=== PATIENT | female | born 1955 | race Caucasian/White ===

== ENCOUNTER 2017-11-26 14:53 | Inpatient (IN) | payer SELFPAY ==
[~2017-11-26] VITALS: Ht 162.6 cm; Wt 54.4 kg
--- NOTE | 2017-11-26 14:55 | NUR ---
AAOX3, BIBRA 89 FROM HOME C/O MILD SOB, SPO2=98% ON RA, PT HAS BEEN TAKING ANTIBIOTIC FOR PNA. SKIN IS WARM AND DRY. PLACED ON THE MONITOR AND HOSPITAL GOWN. WARM BLANKET PROVIDED TO PATIENT. AWAITING MD FOR EVAL.
[2017-11-26 15:26] LABS: BASOPHILS # (AUTO) 0.4 /CMM (0.0-0.2); BASOPHILS % (AUTO) 3.9 % (0.0-2.0); EOSINOPHILS % (AUTO) 3.1 % (0.0-6.0); HEMATOCRIT 32 % (33-45); LYMPHOCYTES # (AUTO) 1.3 /CMM (0.8-4.8); LYMPHOCYTES % (AUTO) 14.4 % (20.0-44.0); MEAN CORPUSCULAR HEMOGLOBIN 30 PG (26.0-33.0); MEAN CORPUSCULAR HGB CONC 34 g/dl (31.0-36.0); MEAN CORPUSCULAR VOLUME 88 fL (82-100); MONOCYTES # (AUTO) 0.5 /CMM (0.1-1.30); MONOCYTES % (AUTO) 5.1 % (2.0-12.0); NEUTROPHILS # (AUTO) 6.8 /CMM (1.8-8.9); NEUTROPHILS % (AUTO) 73.5 % (43.0-81.0); PLATELET COUNT (AUTO) 648 /CMM (150-450); RDW COEFFICIENT OF VARIATION 11.8 (11.5-15.0); RED BLOOD CELL COUNT(AUTO) 3.67 MIL/uL (4.0-5.2); WHITE BLOOD COUNT (AUTO) 9.3 K/uL (4.3-11.0)
[2017-11-26] MEDS ORDERED: ALBUTEROL FS 2.5 MG/3 ML VIAL.NEB NEB ONE (15:30)
[2017-11-26] MEDS ORDERED: IPRATROPIUM NEB FS 0.5 MG/2.5 ML AMPUL.NEB NEB ONE (15:30)
[2017-11-26] MEDS ORDERED: IPRATROPIUM NEB FS 0.5 MG/2.5 ML AMPUL.NEB ONE (15:35)
[2017-11-26] MEDS ORDERED: ALBUTEROL FS 2.5 MG/3 ML VIAL.NEB ONE (15:35)
[2017-11-26 15:39] LABS: CALCIUM, SERUM 9.3 mg/dL (8.5-10.1); POTASSIUM 3.3 mmol/L (3.5-5.1)
--- NOTE | 2017-11-26 15:42 | NUR ---
URINE SPECIMEN OBTAINED AND COLLECTED SENT TO LAB , AT BEDSIDE EVALUATING THE PT , RT AT BEDSIDE FOR BREATHING TX , VSS STABLE , WILL CONTINUE TO MONITOR
[2017-11-26 15:51] LABS: TROPONIN I < 0.017 ng/mL (0.00-0.056)
[2017-11-26] MEDS ORDERED: IV NS 0.9% 1,000 ML IV PRN ×2 (16:00)
[2017-11-26] MEDS ORDERED: AZITHROMYCIN 500 MG in IV D5W 250 ML IV ONE (16:00)
[2017-11-26] MEDS ORDERED: CEFTRIAXONE 1GM BAG (ER ONLY) 1 GM/50 ML PIGGYBACK IV ONE (16:00)
[2017-11-26] MEDS ORDERED: CEFTRIAXONE 1GM BAG (ER ONLY) 50 ML IV ONE (16:13)
--- NOTE | 2017-11-26 16:13 | NUR ---
CALLED PHARMACY FOR AZITHROMYCIN, SPOKE TO LOULOU
--- NOTE | 2017-11-26 16:26 | NUR ---
CALLED [facility] FOR PANEL CALL AND DR LUIS WAS PAGED. CALLED NURSING CERTIFIED FRAUD EXAMINER AND REQUESTED A TELE BED FOR THIS PT.
--- NOTE | 2017-11-26 16:43 | NUR ---
NOTIFIED DR MARQUEZ THAT PT IS COMPLAINING THAT SHE FELT SWELLING ON HER BOTH LEGS GOING UP TO HER FACE , ON 2LPM NC SPO2 OF 100% VSS , IVF BOLUS HELD , DENIES SOB AND DISCOMFORT , AWARE , AWATING FOR ORDERS
[2017-11-26 16:56] LABS: CREATINE KINASE, TOTAL 59 U/L (26-192)
--- NOTE | 2017-11-26 17:06 | NUR ---
PT IS ASSIGNED TO TELE RM#: [id number], DX: PNEUMONIA, AND ACCEPTING IS DR RESENDIZ
[2017-11-26] MEDS ORDERED: IOHEXOL-350 100 ML VIAL IV ONE (17:07)
--- NOTE | 2017-11-26 17:12 | NUR ---
TRANSFERED TO RADIOLOGY DEPT FOR CT PULMO ANGIO VSS STABLE ,
[2017-11-26 17:50] LABS: APPEARANCE,URINE CLEAR (CLEAR); BILIRUBIN,URINE NEGATIVE (NEGATIVE); BLOOD, URINE 1+ Ery/uL (NEGATIVE); COLOR,URINE YELLOW (YELLOW); KETONES,URINE NEGATIVE (NEGATIVE); LEUKOCYTE ESTERASE ,URINE NEGATIVE (NEGATIVE); NITRITE, URINE NEGATIVE (NEGATIVE); PROTEIN,URINE NEGATIVE (NEGATIVE); UGLUCOSE NEGATIVE (NEGATIVE); UROBILINOGEN,URINE 0.2 EU/dL (0.2)
[2017-11-26 17:58] LABS: BILIRUBIN,TOTAL 0.1 mg/dL (0.2-1.0)
[2017-11-26] MEDS ORDERED: MAG HYDROX/AL HYDROX/SIMETH 30 ML UDC PO PRN ×2 (18:00→18:45)
[2017-11-26] MEDS ORDERED: HYDROCODONE/APAP 5/325MG 1 EACH TABLET PO PRN ×2 (18:00→18:45)
[2017-11-26] MEDS ORDERED: POTASSIUM CHLORIDE 20 MEQ TAB.PRT.SR PO ONE ×2 (18:00)
[2017-11-26] MEDS ORDERED: ACETAMINOPHEN 325 MG TABLET PO PRN (18:00)
[2017-11-26] MEDS ORDERED: MAGNESIUM HYDROXIDE 30 ML UDC PO PRN ×2 (18:00→18:45)
[2017-11-26] MEDS ORDERED: ZOLPIDEM TARTRATE 5 MG TABLET PO PRN ×2 (18:00→18:45)
[2017-11-26] MEDS ORDERED: ONDANSETRON HCL/PF 4 MG/2 ML VIAL IVP PRN ×2 (18:00→18:45)
[2017-11-26] MEDS ORDERED: Z GUARD REMEDY 2 OZ OINT TP PRN ×2 (18:00→18:45)
[2017-11-26 18:05] LABS: BACTERIA,URINE None seen /HPF (None Seen); SQUAMOUS EPITHELIAL CELL,UR 0-2 /HPF (None Seen); WBC,URINE 0-2 /HPF (0-3)
--- NOTE | 2017-11-26 18:30 | NUR ---
EDUCATION SITE MANAGER NOTES: ADMITTED PATIENT WITH A DIAGNOSIS OF PNEUMONIA. NO APPARENT DISTRESS NOTED. NO COMPLAINTS OF PAIN OR DISCOMFORT AT THIS TIME. VITAL SIGNS WNL. SKIN IS INTACT. BELONGINGS LIST DONE. WILL ENDORSE TO ENTRY LEVEL ACCOUNT REPRESENTATIVE FOR DMITRIY.
--- NOTE | 2017-11-26 18:45 | NUR ---
TRANSFERED TO ROOM 120-1 VIA ACLS PROTOCOL , VSS , DENIES SOB AND DISCOMFORT AT THIS TIME , ATTACHED TO TELE MONITOR , REPORT GIVEN TO DERREK FOR CONTINUITY OF CARE
[2017-11-26 19:11] VITALS: BP 116/76
[2017-11-26 20:00] VITALS: BP 107/64
--- NOTE | 2017-11-26 20:30 | NUR ---
INSURANCE ASSISTANT OPENING NOTES RECEIVED REPORT FROM NED FIGUEREDO. PATIENT A/A/O X3, ABLE TO MAKE NEEDS KNOWN. BREATHING EVEN & UNLABORED, TOLERATING O2 @ 2LPM VIA NC. ON TELE W/ SINUS RHYTHM, HR 70S. DENIES ANY CARDIAC DISTRESS, SOB OR DIFFICULTY BREATHING. RIGHT AC IV #20 INTACT & PATENT W/ DRESSING CDI. NO S/S OF INFILTRATION NOTED. DENIES ANY PAIN OR DISCOMFORT @ THIS TIME. SAFETY MEASURES MAINTAINED W/ CALL LIGHT WITHIN REACH. INSTRUCTED TO CALL FOR ASSISTANCE. WILL CONTINUE TO MONITOR.
[2017-11-26] MEDS: IV NS 0.9% 1,000 ML IV PRN (21:09)
[2017-11-27] VITALS (7 sets, daily range): BP systolic 90–105; BP diastolic 54–64
--- NOTE | 2017-11-27 07:30 | NUR ---
SUB ARC OPERATOR INITIAL NOTES RECEIVED PATIENT SLEEPING IN BED, EASY TO AROUSE, AOX3, ON 2L NC, NO COMPLIANT OF SOB, AMBULATORY, ON TELE MONITOR 75 HR SR, IV L FA NS @ 75 ML/HR, CLEAN AND PATENT, BED IN LOW AND LOCKED POSITION CALL LIGHT WITHIN REACH, WILL CONTINUE TO MONITOR.
[2017-11-27] MEDS: AZITHROMYCIN 250 MG TABLET PO SCH (08:38)
[2017-11-27] MEDS ORDERED: AZITHROMYCIN 250 MG TABLET PO SCH (09:00)
[2017-11-27 12:47] LABS: BASOPHILS % (AUTO) 0.4 % (0.0-2.0); EOSINOPHILS % (AUTO) 3.6 % (0.0-6.0); HEMATOCRIT 31 % (33-45); HEMOGLOBIN 10.3 g/dL (11.5-14.8); LYMPHOCYTES # (AUTO) 1.4 /CMM (0.8-4.8); LYMPHOCYTES % (AUTO) 15.1 % (20.0-44.0); MEAN CORPUSCULAR HEMOGLOBIN 30 PG (26.0-33.0); MEAN CORPUSCULAR HGB CONC 33 g/dl (31.0-36.0); MEAN CORPUSCULAR VOLUME 91 fL (82-100); MONOCYTES # (AUTO) 0.5 /CMM (0.1-1.30); NEUTROPHILS # (AUTO) 6.7 /CMM (1.8-8.9); NEUTROPHILS % (AUTO) 74.9 % (43.0-81.0); PLATELET COUNT (AUTO) 623 /CMM (150-450); RDW COEFFICIENT OF VARIATION 12.7 (11.5-15.0); RED BLOOD CELL COUNT(AUTO) 3.45 MIL/uL (4.0-5.2)
[2017-11-27 13:00] LABS: CALCIUM, SERUM 8.6 mg/dL (8.5-10.1); CREATININE 0.8 mg/dL (0.6-1.3); POTASSIUM 3.6 mmol/L (3.5-5.1)
[2017-11-27 13:03] LABS: IRON, SERUM 17 ug/dl (50-175); TOTAL IRON BINDING CAPACITY 183 ug/dl (250-450)
[2017-11-27 13:17] LABS: FERRITIN 198 ng/mL (8-388)
[2017-11-27] MEDS: IV NS 0.9% 1,000 ML IV PRN (13:45)
[2017-11-27] MEDS: CEFTRIAXONE 1 G in IV NS 0.9% 50 ML IV SCH (17:08)
[2017-11-27] MEDS: ACETAMINOPHEN 325 MG TABLET PO PRN (17:19)
[2017-11-27] MEDS ORDERED: CEFTRIAXONE 1 G in IV NS 0.9% 50 ML IV SCH (18:00)
--- NOTE | 2017-11-27 18:54 | NUR ---
ELECTRIC SWITCH TESTER NOTES PATIENT RESTING IN BED, ALL NEEDS MET, NO SIGNS OF DISTRESS, WILL ENDORSE TO INDUSTRIAL STAFF NURSE FOR CONTINUITY OF CARE.
--- NOTE | 2017-11-27 20:00 | NUR ---
ENTERPRISE SOFTWARE ENGINEER OPENING NOTES RECEIVED REPORT FROM MALOU FIGUEREDO. PATIENT A/A/O X3, ABLE TO MAKE NEEDS KNOWN. BREATHING EVEN & UNLABORED, TOLERATING ROOM AIR BUT W/ NC @ 2LPM ON/OFF FOR COMFORT. ON TELE W/ SINUS RHYTHM, HR 70S. DENIES ANY CARDIAC DISTRESS, SOB OR DIFFICULTY BREATHING. RIGHT AC IV #20 INTACT & PATENT W/ DRESSING CDI & IVF NS INFUSING WELL @ 75 ML/HR. NO S/S OF INFILTRATION NOTED. DENIES ANY PAIN OR DISCOMFORT @ THIS TIME. SAFETY MEASURES MAINTAINED W/ CALL LIGHT WITHIN REACH. INSTRUCTED TO CALL FOR ASSISTANCE. WILL CONTINUE TO MONITOR.
[2017-11-28] VITALS: BP_SYST 108; BP_SYST 86; BP_DIAS 50; BP_DIAS 61
[2017-11-28] MEDS: ACETAMINOPHEN 325 MG TABLET PO PRN ×2 (01:39→22:06)
[2017-11-28 04:00] VITALS: BP 98/61
[2017-11-28] MEDS: IV NS 0.9% 1,000 ML IV PRN ×2 (06:43→20:40)
[2017-11-28 08:00] VITALS: BP 94/62
[2017-11-28] MEDS: AZITHROMYCIN 250 MG TABLET PO SCH (08:38)
[2017-11-28 11:08] LABS: BASOPHILS # (AUTO) 0.1 /CMM (0.0-0.2); BASOPHILS % (AUTO) 1.4 % (0.0-2.0); EOSINOPHILS % (AUTO) 3.6 % (0.0-6.0); HEMATOCRIT 30 % (33-45); HEMOGLOBIN 9.9 g/dL (11.5-14.8); LYMPHOCYTES # (AUTO) 1.6 /CMM (0.8-4.8); MEAN CORPUSCULAR HEMOGLOBIN 31 PG (26.0-33.0); MEAN CORPUSCULAR HGB CONC 33 g/dl (31.0-36.0); MEAN CORPUSCULAR VOLUME 92 fL (82-100); MONOCYTES # (AUTO) 0.5 /CMM (0.1-1.30); NEUTROPHILS # (AUTO) 7.5 /CMM (1.8-8.9); PLATELET COUNT (AUTO) 549 /CMM (150-450); RDW COEFFICIENT OF VARIATION 12.6 (11.5-15.0); RED BLOOD CELL COUNT(AUTO) 3.25 MIL/uL (4.0-5.2); WHITE BLOOD COUNT (AUTO) 10.1 K/uL (4.3-11.0)
[2017-11-28 11:45] LABS: CALCIUM, SERUM 8.8 mg/dL (8.5-10.1); CREATININE 0.8 mg/dL (0.6-1.3)
[2017-11-28 12:00] VITALS: BP 103/67
[2017-11-28] MEDS: ALBUTEROL HALF STRENGTH 1.25 MG/3 ML VIAL.NEB NEB SCH ×2 (14:40→20:29)
[2017-11-28] MEDS: IPRATROPIUM NEB FS 0.5 MG/2.5 ML AMPUL.NEB NEB SCH ×2 (14:40→20:29)
[2017-11-28] MEDS: FERROUS SULFATE (325 MG) 325 MG/TAB TABLET PO SCH ×2 (15:05→17:02)
[2017-11-28 16:00] VITALS: BP 110/71
[2017-11-28] MEDS: CEFTRIAXONE 1 G in IV NS 0.9% 50 ML IV SCH (17:02)
--- NOTE | 2017-11-28 19:40 | NUR ---
MS RN NOTES, PATIENT IN BED AWAKE ALERT AND ORIENTED, ABLE TO COMMUNICATE NEEDS AND CONCERNS, BREATHING EVEN & UNLABORED, NO S/S OF ACUTE DISTRESS OR DISCOMFORT AT THIS TIME, TOLERATING ROOM AIR, RECEIVING BREATHING TREATMENT AT THIS TIME, DENIES PAIN OR DISCOMFORT AT THIS TIME, RIGHT AC IV #20 INTACT & PATENT IVF NS 0.9% INFUSING WELL @ 75 ML/HR. NO S/S OF INFILTRATION NOTED. BED LOCKED AND LOW POSITION, ALL NEEDS PROVIDED, CALL LIGHT W/I REACH, WILL CONTINUE TO MONITOR CLOSELY.
[2017-11-28 20:00] VITALS: BP 102/71
[2017-11-28] MEDS ORDERED: ZOLPIDEM TARTRATE 10 MG TABLET PO PRN (22:00)
[2017-11-29 04:00] VITALS: BP 98/58
[2017-11-29 06:45] LABS: BASOPHILS # (AUTO) 0.2 /CMM (0.0-0.2); BASOPHILS % (AUTO) 1.7 % (0.0-2.0); EOSINOPHILS % (AUTO) 3.9 % (0.0-6.0); HEMATOCRIT 30 % (33-45); HEMOGLOBIN 10.1 g/dL (11.5-14.8); LYMPHOCYTES # (AUTO) 1.2 /CMM (0.8-4.8); MEAN CORPUSCULAR HEMOGLOBIN 30 PG (26.0-33.0); MEAN CORPUSCULAR HGB CONC 34 g/dl (31.0-36.0); MEAN CORPUSCULAR VOLUME 90 fL (82-100); MONOCYTES # (AUTO) 0.6 /CMM (0.1-1.30); MONOCYTES % (AUTO) 5.9 % (2.0-12.0); NEUTROPHILS # (AUTO) 8.4 /CMM (1.8-8.9); NEUTROPHILS % (AUTO) 77.5 % (43.0-81.0); PLATELET COUNT (AUTO) 552 /CMM (150-450); RDW COEFFICIENT OF VARIATION 13.1 (11.5-15.0); RED BLOOD CELL COUNT(AUTO) 3.33 MIL/uL (4.0-5.2); WHITE BLOOD COUNT (AUTO) 10.8 K/uL (4.3-11.0)
--- NOTE | 2017-11-29 06:46 | NUR ---
MS RN NOTES, PATIENT IN BED SLEEPING AT THIS TIME, BREATHING EVEN & UNLABORED, NO S/S OF ACUTE DISTRESS OR DISCOMFORT AT THIS TIME, MO S/S OF PAIN OR DISCOMFORT NOTED AT THIS TIME, RIGHT AC IV #20 INTACT & PATENT IVF NS 0.9% INFUSING WELL @ 75 ML/HR. NO S/S OF INFILTRATION NOTED. BED LOCKED AND LOW POSITION, ALL NEEDS PROVIDED, REMAINED STABLE DURING THE NIGHT, CALL LIGHT W/I REACH, WILL ENDORSE CONTINUITY OF CARE TO ONCOMING NURSE.
[2017-11-29 07:11] LABS: CALCIUM, SERUM 8.9 mg/dL (8.5-10.1); CREATININE 0.7 mg/dL (0.6-1.3); MAGNESIUM 2.1 mg/dL (1.8-2.4); PHOSPHORUS 3.5 mg/dL (2.5-4.9)
[2017-11-29] MEDS: IPRATROPIUM NEB FS 0.5 MG/2.5 ML AMPUL.NEB NEB SCH ×2 (07:31→11:28)
[2017-11-29] MEDS: ALBUTEROL HALF STRENGTH 1.25 MG/3 ML VIAL.NEB NEB SCH ×2 (07:31→11:28)
[2017-11-29 08:00] VITALS: BP 112/73
[2017-11-29] MEDS: FERROUS SULFATE (325 MG) 325 MG/TAB TABLET PO SCH (08:16)
[2017-11-29] MEDS: AZITHROMYCIN 250 MG TABLET PO SCH (08:16)
[2017-11-29] MEDS: IV NS 0.9% 1,000 ML IV PRN (10:08)
[2017-11-29] MEDS ORDERED: LEVO750T21 PO (10:35)
[2017-11-29] MEDS: CEFTRIAXONE 1 G in IV NS 0.9% 50 ML IV SCH (14:16)
--- NOTE | 2017-11-29 16:00 | NUR ---
RN NOTE PT DISCHARGED HOME WITH VIA OWN TRANSPORTATION, DISCHARGE INSTRUCTIONS GIVEN TO PT, EXIT CARE DONE, TEACHING DONE TO PT, PT VERBALIZED UNDERSTANDING, PT IV REMOVED, ID BAND REMOVED. BELONGING LIST SIGNED, BELONGINGS PROVIDED TO PT. SKIN IS INTACT.
== END 2017-11-29 15:57 | disposition home or self-care (01) | DRG 177 ==
LOC: ER 14:54 → TELE1 18:47 → MEDSG1 11-28 14:38
PROVIDERS: ADMIT Family Medicine; ATTEND Family Medicine
DX: J15.6 Pneumonia due to other Gram-negative bacteria (principal); J96.01 Acute respiratory failure with hypoxia; E87.2 Acidosis; E87.1 Hypo-osmolality and hyponatremia; J15.9 Unspecified bacterial pneumonia; E87.6 Hypokalemia; E86.0 Dehydration; D50.9 Iron deficiency anemia, unspecified; Z87.891 Personal history of nicotine dependence; R73.9 Hyperglycemia, unspecified
CPT/HCPCS: 36415; 71045-TC; 80048-TC; 80061-TC; 81000-TC; 82247-TC; 82248-TC; 82550-TC; 82553-TC; 82728-TC; 83540-TC; 83605-TC; 83735-TC; 83880; 84100-TC; 84443-TC; 84484-TC; 85025-TC; 85378-TC; 87040-TC; 87070-TC; 87081-TC; 87086-TC; A4216; A4606; J0456; J0696; J7030; J7060; Q9967; Z7610

== ENCOUNTER 2017-12-02 13:58 | Emergency (ER) | payer SELFPAY ==
[~2017-12-02] VITALS: Ht 162.6 cm; Wt 52.8 kg
[~2017-12-02 13:58] MED LIST: LEVO750T21 PO
--- NOTE | 2017-12-02 14:08 | NUR ---
PT AMBULATORY TO ER BED 05. C/O SOB, DIZZINESS 2 HOURS AFTER TAKING DOXYCYLINE FOR HER PNEUMONIA. DENIES CP. ENDORSES MUSCLE CRAMPING, NO SKIN RASH NOTED. PLACED ON MONITOR. AWAITING MD [place].
--- NOTE | 2017-12-02 14:25 | NUR ---
DR HERNANDEZ AT BEDSIDE FOR EVAL.
--- NOTE | 2017-12-02 14:35 | NUR ---
IV LINE STARTED BLOOD DRAWN AND SENT TO LAB.
[2017-12-02 14:40] LABS: BASOPHILS # (AUTO) 0.3 /CMM (0.0-0.2); BASOPHILS % (AUTO) 2.6 % (0.0-2.0); EOSINOPHILS % (AUTO) 1.4 % (0.0-6.0); HEMATOCRIT 33 % (33-45); HEMOGLOBIN 11.3 g/dL (11.5-14.8); LYMPHOCYTES # (AUTO) 2.2 /CMM (0.8-4.8); LYMPHOCYTES % (AUTO) 21.1 % (20.0-44.0); MEAN CORPUSCULAR HEMOGLOBIN 30 PG (26.0-33.0); MEAN CORPUSCULAR HGB CONC 34 g/dl (31.0-36.0); MEAN CORPUSCULAR VOLUME 87 fL (82-100); MONOCYTES # (AUTO) 0.5 /CMM (0.1-1.30); MONOCYTES % (AUTO) 5.2 % (2.0-12.0); NEUTROPHILS # (AUTO) 7.1 /CMM (1.8-8.9); NEUTROPHILS % (AUTO) 69.7 % (43.0-81.0); PLATELET COUNT (AUTO) 677 /CMM (150-450); RDW COEFFICIENT OF VARIATION 12.2 (11.5-15.0); RED BLOOD CELL COUNT(AUTO) 3.82 MIL/uL (4.0-5.2); WHITE BLOOD COUNT (AUTO) 10.2 K/uL (4.3-11.0)
[2017-12-02 14:49] LABS: CALCIUM, SERUM 9.6 mg/dL (8.5-10.1); CARBON DIOXIDE 23 mmol/L (21-32); CHLORIDE 102 mmol/L (98-107); GLUCOSE 109 mg/dL (74-106); POTASSIUM 3.5 mmol/L (3.5-5.1); SODIUM SERUM 134 mmol/L (136-145); UREA NITROGEN, BLOOD 18 mg/dL (7-18)
[2017-12-02 14:53] LABS: INR 1.02 (0.85-1.15)
[2017-12-02 14:58] LABS: TROPONIN I < 0.017 ng/mL (0.00-0.056)
[2017-12-02] MEDS ORDERED: IV NS 0.9% 1,000 ML BAG IV ONE (15:30)
[2017-12-02] MEDS ORDERED: LORAZEPAM INJ 2 MG/ML VIAL IV ONE (16:00)
[2017-12-02] MEDS ORDERED: LORAZEPAM INJ 2 MG/ML VIAL ONE (16:04)
--- NOTE | 2017-12-02 16:08 | NUR ---
PT APPEARS ANXIOUS. DR HERNANDEZ MADE AWARE. MEDICATED ORDERED. SEE EMAR.
--- NOTE | 2017-12-02 17:18 | NUR ---
Patient discharged to home in stable condition. Written and verbal after care instructions given. Patient verbalizes understanding of instruction.IV removed. Catheter intact and site benign. Pressure and 4x4 applied to site. No bleeding noted.
[2017-12-02 17:19] VITALS: BP 105/67
== END 2017-12-02 17:20 | disposition home or self-care (01) ==
LOC: ER 13:59
DX: J18.9 Pneumonia, unspecified organism (principal); F41.9 Anxiety disorder, unspecified
CPT/HCPCS: 36415; 71045-TC; 80048-TC; 84484-TC; 85025-TC; 85730-TC; A4606; J2060; J7030; Z7610